=== PATIENT | female | born 1945 | race Caucasian/White ===

== ENCOUNTER 2022-07-03 09:45 | Outpatient (CLI) | payer MEDICARE, SELFPAY ==
--- NOTE | ~2022-07-03 | MM_ITS ---
EXAMINATION: MM screening araceli BI w cammie HISTORY: Screening mammogram, history of right breast cancer TECHNIQUE: Craniocaudal and mediolateral oblique 3-D tomosynthesis images were obtained and synthetic 2-D images were generated. CAD analysis was submitted and interpreted. COMPARISON: No prior mammogram is available for comparison at this institution. BREAST PARENCHYMAL COMPOSITION: There are scattered areas of fibroglandular density. FINDINGS: There is architectural distortion in the right breast at site of prior lumpectomy No suspic ious mass, calcification, or architectural distortion are identified in either breast to suggest kelley gnancy. IMPRESSION: 1. No mammographic evidence of malignancy. 2. Recommend routine screening mammography in one year. BI-RADS Category 2: Benign finding(s). Reviewed, dictated and finalized at location A.
== END 2022-07-03 09:46 | disposition home or self-care (01) ==
LOC: ANHIMG 09:48
PROVIDERS: Visit Provider Internal Medicine Medical Oncology
DX: Z12.31 Encounter for screening mammogram for malignant neoplasm of breast (principal)
CPT/HCPCS: 77063; 77067

== ENCOUNTER 2023-07-06 09:45 | Outpatient (CLI) | payer MEDICARE, SELFPAY ==
--- NOTE | ~2023-07-06 | MM_ITS ---
EXAMINATION: MM screening araceli BI w cammie HISTORY: Screening mammogram TECHNIQUE: Craniocaudal and mediolateral oblique 3-D tomosynthesis images were obtained and synthetic 2-D images were generated. CAD analysis was submitted and interpreted. COMPARISON: 06/29/2022 bilateral screening mammogram BREAST PARENCHYMAL COMPOSITION: There are scattered areas of fibroglandular density. FINDINGS: There is considerable volume loss and chronic stable postsurgical change of the right breas t post partial mastectomy for breast cancer. There is no evidence of suspicious mass, calcification, or new architectural distortion to suggest interval malignancy in either breast. There has been no stanley spicious interval change. IMPRESSION: 1. Status post right partial mastectomy for breast cancer. No mammographic evidence of malignancy. 2. Recommend routine screening mammography in one year. BI-RADS Category 2: Benign finding(s). Reviewed, dictated and finalized at location A. IMPRESSION: 1. Status post right partial mastectomy for breast cancer. No mammographic evid ence of malignancy. 2. Recommend routine screening mammography in one year. BI-RADS Category 2: Benign finding(s).
== END 2023-07-06 09:46 | disposition home or self-care (01) ==
LOC: ANHIMG 09:48
PROVIDERS: PCP Nurse Practitioner Family; Visit Provider Nurse Practitioner Family
DX: Z12.31 Encounter for screening mammogram for malignant neoplasm of breast (principal)
CPT/HCPCS: 77063; 77067

== ENCOUNTER 2024-08-20 13:47 | Outpatient (CLI) | payer MEDICARE, SELFPAY ==
--- NOTE | ~2024-08-20 | MM_ITS ---
EXAMINATION: MM screening araceli BI w cammie HISTORY: Screening TECHNIQUE: Craniocaudal and mediolateral oblique 3-D tomosynthesis images were obtained and synthetic 2-D images were generated. CAD analysis was submitted and interpreted. COMPARISON: Comparison to multiple prior studies sequentially, with oldest reviewed study dated 06/11. BREAST PARENCHYMAL COMPOSITION: Not dense: There are scattered areas of fibroglandular density. FINDINGS: There is no evidence of suspicious mass, calcification, or architectural distortion to sugg est malignancy in either breast. There has been no suspicious interval change. IMPRESSION: 1. No mammographic evidence of malignancy. 2. Recommend routine screening mammography in one year. BI-RADS Category 1: Negative Reviewed, dictated and finalized at location B. OR TALENT MANAGEMENT CONSULTANT
== END 2024-08-20 13:48 | disposition home or self-care (01) ==
LOC: ANHIMG 13:49
PROVIDERS: PCP Internal Medicine Geriatric Medicine; Visit Provider Internal Medicine Medical Oncology
DX: Z12.31 Encounter for screening mammogram for malignant neoplasm of breast (principal); C50.911 Malignant neoplasm of unspecified site of right female breast; Z17.1 Estrogen receptor negative status [ER-]; Z90.11 Acquired absence of right breast and nipple
CPT/HCPCS: 77063; 77067

== ENCOUNTER 2025-02-18 14:09 | Outpatient (CLI) | payer MEDICARE, SELFPAY ==
--- NOTE | ~2025-02-18 | XR_ITS ---
[[id number] ] INDICATION: Third any appeared status post recent fall. TECHNIQUE: Frontal projection of the upper left ribs, frontal projection of the lower left ribs, obli que projection of all the left ribs, frontal inspiratory chest x-ray for interpretation. FINDINGS: There is an acute left 11th rib fracture. No other fracture identified. No pneumothorax. Th ere are no soft tissue abnormality seen. The lungs are clear. There is mild scoliosis. There are stanley rgical clips overlying the right breast and axilla. IMPRESSION: 1: Acute left 11th rib fracture. Reviewed, dictated and finalized at location []
== END 2025-02-18 14:10 | disposition home or self-care (01) ==
LOC: GOSHIMG 14:10
PROVIDERS: PCP Family Medicine; Visit Provider Nurse Practitioner
DX: S22.32XA Fracture of one rib, left side, initial encounter for closed fracture (principal); R07.81 Pleurodynia
CPT/HCPCS: 71101

== ENCOUNTER 2025-07-23 09:45 | Outpatient (CLI) | payer MEDICARE, SELFPAY ==
--- NOTE | ~2025-07-23 | DEXA_ITS ---
Bone Density Report Name: TRACI ZABALA Age: 80 Sex: Female Ethnicity: White Date of : 1945 Indication: postmenopausal; screening for osteoporosis; cancer; Referring Provider: NELLY OAKES Study: Bone densitometry was performed. Exam Date: July 23, 2025 Accession number: [id number] Bone Density: Region BMD T-score Z-score Classification AP Spine(L1-L4) 0.917 -1.2 1.6 Osteopenia Femoral Neck (Left) 0.741 -1.0 1.4 Normal Total Hip (Left) 0.970 0.2 2.4 Normal Femoral Neck (Right) 0.729 -1.1 1.3 Osteopenia Total Hip (Right) 0.947 0.0 2.2 Normal Total Hip Mean 0.959 0.1 2.3 Normal World Health Organization criteria for BMD impression classify patients as: Normal (T-score at or above -1.0), Osteopenia (T-score between -1.0 and -2.5), or Osteoporosis (T-score at or below -2.5). 10-year Fracture Risk(1): Major Osteoporotic Fracture 12% Hip Fracture 2.7% Reported Risk Factors: [place] (), Neck BMD=0.729, BMI=26.4 (1) FRAX(R) Version 3.08. Fracture probability calculated for an untreated patient. Fracture probability may be lower if the patient has received treatment. Clinical Information Provided by Patient: Has used the following medications: Vitamin D, Calcium Has the following medical conditions: Cancer Patient maximum height was 67.5 Menopause Age: 43 Drinks caffeinated beverages Onset of menses at age 10 Number of children 5 Impression: The patient has low bone mass, based on the Total Spine T-score. The patient has an estimated ten-year risk of hip fracture of 2.7% and an estimated ten-year risk of major fracture of 12%, based on the WHO FRAX algorithm. Discussion: BONE DENSITY IS LOW AT ONE OR MORE SKELETAL SITES. This patient's lowest T-score is low at one or more skeletal sites. It meets the World Health Organization's (WHO) criteria for ?low bone mass? (T-score between -1.0 and -2.5). The patient's 10-year risk of fracture as calculated by FRAX is less than the threshold where pharmacological therapy is recommended by the National Osteoporosis Foundation (NOF). However, all treatment decisions require clinical judgment and consideration of individual patient factors, including patient preferences, comorbidities, previous drug use, risk factors not captured in the FRAX model (e.g., frailty, falls, vitamin D deficiency, increased bone turnover, interval significant decline in bone density) and possible under or overestimation of fracture risk by FRAX. The patient should follow a healthful lifestyle (good nutrition with adequate calcium and vitamin D, and appropriate weight-bearing exercise). Follow-Up: Consider repeating this study in 2 to 3 years to reassess this patient's status, or sooner if there is some new clinical indication. Reported by: SARAH on 07/23/2025 10:36:00 AM. Reviewed, dictated and finalized at location A.
--- OUTSIDE RECORDS SUMMARY | 2025-07-23 10:25 | XMS_ITS | Clinical Summary ---
Author Organization [facility] Address [address] [place] [id number] Care Team Providers Care Shearer Screen Measurer And Trimmer Name Role Phone Steffi Srinivasan MD PhD Unavaila ble Mar Wan POWERPLANT OPERATOR Unavailable [phone] Jeannette Woods DO Primary Care Provider [phone]- [phone] Allergies No known active allergies Medications multivitamin capsule take 1 capsule by oral route every day 0 0 Active atenolol (TENORMIN) 25 mg tablet Take 1 tablet (25 mg total) by mouth daily 7 Active vitamin E 400 unit capsule Take 1 capsule (400 Units total) by mouth daily Active alendronate (FOSAMAX) 70 mg tablet Take 1 tablet (70 mg total) by mouth once a week Pt states takes on weekends 9 Active aspirin 81 mg chewable tablet Take 1 tablet (81 mg total) by mouth daily Active ondansetron ODT (ZOFRAN-ODT) 4 mg disintegrating tablet Take 1 tablet (4 mg total) by mouth every 8 (eight) hours as needed for nausea or vomiting 20 tablet 4 Active cholecalciferol (VITAMIN D-3) 5,000 unit tablet Take 1 tablet (5,000 Units total) by mouth daily Active fluticasone propionate (FLONASE) 50 mcg/actuation nasal spray Administer 1 spray into each nostril daily Active metFORMIN XR (GLUCOPHAGE XR) 500 mg 24 hr tablet Take 1 tablet (500 mg total) by mouth 2 (two) times a day Active Active Problems Problem Noted Date Diagnosed Date Acute pulmonary embolism wit hout acute cor pulmonale, unspecified pulmonary embolism type 03/14/2024 Acute pulmonary embolism wit h acute cor pulmonale, unspecified pulmonary embolism type 03/14/2024 Hx of colonic polyps 03/08/2023 Malignant neoplasm of right breast in female, estrogen receptor negative 11/29/2018 Cancer Staging:Pathologic stage from 09/05/2006:Stage IIIA(pT2, pN1a, cM0, G3, ER-, MS-, HER2-) - Signed by Arvin Castaneda MD on 12/04/2018 History of breast cancer in female 07/03/2017 Torn cartilage 12/13/2015 Overview (12/14/2016): Degenerative tear of meniscus of right knee Encounters Date Type Department Care Team Description 06/19/2025 9:15 AM CDT Office Visit [facility] [address] [place] [address] [address] [place] [address] Cresencio Ortega, Malignant neoplasm of right breast in female, estrogen receptor negative, unspecified site of breast (HCC) (Primary Dx); Screening mammogram for breast cancer from Last 3 Months Immunizations Immunization Administration Dates Next Due Influenza, Trivalent, IM (MDV) 06/06/2016 Pneumococcal Polysaccharide PPV23 12/02/2014 Surgical History Surgery Date Site/Laterality Comments COLONOSCOPY 2012 BREAST BIOPSY Right RT 2006 BREAST LUMPECTOMY Medical History Medical History Date Comments Hypertension Hypertension Hx Other Medical vertigo; Commen ts: CAC 12/02/2015 - Sleep apnea Syncope when standing at times has syncope Malignant neoplasm of female breast (HCC) 09/10/2005 Cancer, breast; Comments: CA C 12/02/2015 - History of radiation therapy 200 6 History of chemotherapy 2006 Family History Medical History Relation Name Comments Hypertension Father Hypertension; Cancer Mother Cancer; Colon cancer Mother Ovarian cancer Mother Breast cancer Neg Hx Endometrial cancer Neg Hx Thyroid cancer Neg Hx Relation Name Status Comments Father Mother (Age 69) Social History Tobacco Use Types Packs/Day Years Used Date Smoking Tobacco: Never Smokeless Tobacco: Never Alcohol Use Standard Drinks/Week Comments No 0 (1 standard drink = 0.6 oz pur e alcohol) [facility] Utilities Answer Date Recorded In the past 12 months has th e electric, gas, oil, or water company threatened to shut off services in your home? No 03/17/2024 Social Connection and Isolation Panel Answer Date Recorded In a typical week, how many times do you talk on the phone with family, friends, or neighbors? More than three times a week 03/17/2024 How often do you get togethe r with friends or relatives? More than three times a week 03/17/2024 How often do you attend chur ch or mormon services? Never 03/17/2024 Do you belong to any clubs o r organizations such as uatsdin groups, unions, fraternal or athletic groups, or school groups? No 03/17/2024 How often do you attend meet ings of the clubs or organizations you belong to? Never 03/17/2024 Are you , , di vorced, , never , or living with a partner? Patient declined 03/17/2024 Overall Financial Resource Strain (CARDIA) Answe r Date Recorded How hard is it for you to pa y for the very basics like food, housing, medical care, and heating? Not hard at all 03/17/2024 Hunger Vital Sign Answer Date Recorded Within the past 12 months, y ou worried that your food would run out before you got the money to buy more. Never true 03/17/20 24 Within the past 12 months, t he food you bought just didn't last and you didn't have money to get more. Never true 03/17/2024 PRAPARE - Transportation Answer Date Re corded In the past 12 months, has l ack of transportation kept you from medical appointments or from getting medications? No 04/2024 In the past 12 months, has l ack of transportation kept you from meetings, work, or from getting things needed for daily living? No 03/17/2024 Housing Stability Vital Sign Answer Nitesh e Recorded In the last 12 months, was t here a time when you were not able to pay the mortgage or rent on time? No 03/17/2024 In the past 12 months, how m any times have you moved where you were living? 0 03/17/2024 At any time in the past 12 m [facility], were you homeless or living in a prison (including now)? No 03/17/2024 AUDIT-C Answer Date Recorded Frequency of Alcohol Consumption Not on file 06/19/2025 Q2: How many drinks containi ng alcohol do you have on a typical day when you are drinking? Patient does not drink Frequency of Binge Drinking Not on file 06/10 Personal Safety Answer Date Recorded Have you ever been in or are you currently in a harmful physical or emotional relationship or is someone making you feel afraid or unsafe? Denies 06/15/2024 Comments No Sex and Gender Information Value Date Recorded Sex Assigned at Not on file Legal Sex Female 1:22 AM PILOT SUBMERSIBLE Gender Identity Not on file Sexual Orientation Not on file Obstetrics History Para Term AB IAB SAB Ectopic Multiple Livin g Live Births 5 5 5 Date Outcome GA Total Labor Labor//3rd Weight Sex Type Anes PTL Alana A1 A5 Name Clin Term Term Term Term Term Last Filed Vital Signs Vital Sign Reading Time Taken Comments Blood Pressure 144/83 06/19/2025 9:27 AM CDT Pulse 67 06/19/2025 9:27 AM CDT Temperature 36.7 C (98 F) 06/19/2025 9:27 AM CDT Respiratory Rate 18 06/19/2025 9:27 AM CDT Oxygen Saturation 93% 06/19/2025 9:2 7 AM CDT Inhaled Oxygen Concentration - - Weight 79.7 kg (175 lb 11.3 oz) 025 9:27 AM CDT with shoes Height 170.2 cm (5' 7) 10/07/2024 2:52 PM PILOT SUBMERSIBLE Body Mass Index 27.52 10/07/2024 2:52 PM PILOT SUBMERSIBLE Plan of Treatment Health Maintenance Due Date Last Done Comments Depression Screening 1945 DTaP/Tdap/Td Vaccine (1 - Tdap) 1954 Hepatitis B Screening 1961 Zoster Vaccine (1 of 2) 1993 Well Visit 65+ 01/02/2008 Pneumococcal vaccine 65+ (2 of 2 - PCV) 12/03/2015 0 12/02/2014 Osteoporosis Screening-Bone Density Scan 11/28/2017 11/29/2015 Fall Risk Assessment 03/18/2025 03/18/2024, 10/01/19 18 Covid-19 Vaccine ( season) 2025, 10/14/2020 Influenza Vaccine (#1) 2025 06/06/2016 Procedures Procedure Name Priority Date/Time Associated Diagnosis Comments DEXA AXIAL SKELETON BONE DENSITY 1 OR MORE SITES Routine 11/29/2015 8:28 AM CDT from Last 3 Months or Most Recently Relevant to Health Maintenance Results * Dexa Axial Skeleton Bone Density 1 or 2 Site (11/29/2015 8:28 AM CDT) Anatomical Region Laterality Modality N/A Nuclear Medicine 11/29/2015 8:28 AM CDT Narrative 11/30/2015 7:44 AM CDT DATE OF EXAM: Nov 29 2015 8:28AM Acc#: [id number] [facility] 0001 - DEXA Bone Density Axial DIAGNOSIS: MALIG NEOPLM OF LOWER-OUTER QUADRANT OF CLINICAL HISTORY: BREAST CANCER RESULT: EXAM: DEXA BONE DENSITOMETRY DATE: 11/29/2015 CLINICAL HISTORY: Osteopenia COMPARISON: 03/23/2003 T-SCORE: Bone mineral densitometry studies were performed utilizing images obtained of the lumbar spine in the anterior projection, and an anterior image of the left hip. Important findings include the following T-score results and the patient's percentages of normal compared to young adults. T-score % of Normal AP lumbar spine = -1.5 84% Total hip = -0.5 94% Femoral neck = -1.5 81% The T-score compares to the patient's bone mineral density to peak bone mass of young normal adults - the more negative the number, the greater the loss of bone. IMPRESSION: This patient's bone mineral density was found to be below normal. In one or more areas tested, the bone density was found to be between 10% and 25% below the value found in healthy young adults. The T-scores of the AP lumbar spine and femoral neck are consistent with osteopenia. Bone mineral density of the AP lumbar spine has decreased 2.6% compared to the prior exam but increased 2.9% compared to baseline. Bone mineral density of the total hip has decreased 5.8% compared to the prior exam and decreased 1.3% compared to baseline. CURRENT TREATMENT: The patient is on a daily calcium supplement (1200 mg a day), which should be continued. The patient previously took Fosamax for 3 years, but stopped over 20 years ago. The patient previously took Premarin for hormone replacement therapy for 1-2 years, but stopped over 20 years ago. FOLLOW-UP RECOMMENDATIONS: Followup exam in 2 years is recommended. CAMERA REPAIRMAN: [id number] TRANSCRIBE DATE/TIME: Nov 29 2015 7:21P RADIOLOGIST: ASHLI HATCH M.D. READ ON: Nov 29 2015 4:09P ORDERING DR: ARVIN CASTANEDA M.D. THIS DOCUMENT HAS BEEN ELECTRONICALLY SIGNED BY: ASHLI HATCH M.D. ON: Nov 30 2015 7:44A Attending: ARVIN CASTANEDA Requesting: ARVIN CASTANEDA Requesting Attending Attending ID: [id number] Requesting ID: [id number] Report To 1 ID: Report To 1 Name: , Report To 1 FAX: -- Report To 2 ID: Report To 2 Name: , Report To 2 FAX: -- NextGen Order #: Procedure Note Provider, MD Harley - 12/30/2016 DATE OF EXAM: Nov 29 2015 8:28AM Acc#: [id number] [facility] 0001 - DEXA Bone Density Axial DIAGNOSIS: MALIG NEOPLM OF LOWER-OUTER QUADRANT OF CLINICAL HISTORY: BREAST CANCER RESULT: EXAM: DEXA BONE DENSITOMETRY DATE: 11/29/2015 CLINICAL HISTORY: Osteopenia COMPARISON: 03/23/2003 T-SCORE: Bone mineral densitometry studies were performed utilizing images obtained of the lumbar spine in the anterior projection, and an anterior image of the left hip. Important findings include the following T-score results and the patient's percentages of normal compared to young adults. T-score % of Normal AP lumbar spine = -1.5 84% Total hip = -0.5 94% Femoral neck = -1.5 81% The T-score compares to the patient's bone mineral density to peak bone mass of young normal adults - the more negative the number, the greater the loss of bone. IMPRESSION: This patient's bone mineral density was found to be below normal. In one or more areas tested, the bone density was found to be between 10% and 25% below the value found in healthy young adults. The T-scores of the AP lumbar spine and femoral neck are consistent with osteopenia. Bone mineral density of the AP lumbar spine has decreased 2.6% compared to the prior exam but increased 2.9% compared to baseline. Bone mineral density of the total hip has decreased 5.8% compared to the prior exam and decreased 1.3% compared to baseline. CURRENT TREATMENT: The patient is on a daily calcium supplement (1200 mg a day), which should be continued. The patient previously took Fosamax for 3 years, but stopped over 20 years ago. The patient previously took Premarin for hormone replacement therapy for 1-2 years, but stopped over 20 years ago. FOLLOW-UP RECOMMENDATIONS: Followup exam in 2 years is recommended. CAMERA REPAIRMAN: HIRO TRANSCRIBE DATE/TIME: Nov 29 2015 7:21P RADIOLOGIST: ASHLI HATCH M.D. READ ON: Nov 29 2015 4:09P ORDERING DR: ARVIN CASTANEDA M.D. THIS DOCUMENT HAS BEEN ELECTRONICALLY SIGNED BY: ASHLI HATCH M.D. ON: Nov 30 2015 7:44A Attending: ARVIN CASTANEDA Requesting: ARVIN CASTANEDA Requesting Attending Attending ID: [id number] Requesting ID: [id number] Report To 1 ID: Report To 1 Name: , Report To 1 FAX: -- Report To 2 ID: Report To 2 Name: , Report To 2 FAX: -- NextGen Order #: Historical Provider MD CASPER DXA PROCEDURES Final Result from Last 3 Months or Most Recently Relevant to Health Maintenance Insurance [facility] AETNA MEDICARE GOLD AETNA MEDICARE GOLD Advance Directives For more information, please contact: [phone] Documents on File Type Date Recorded Patient Temp Recruiter Expl anation ADVANCE DIRECTIVE 03/19/2024 5:01 PM POWER OF SHUTTLE PREPARATION SUPERVISOR-MEDICAL ADVANCE DIRECTIVE 06/14/2017 Advance Di rective Checklist * Full Code (Latest Code Status on File) Date Activated Date Inactivated Comments 03/14/2024 10:53 AM 03/18/2024 6:07 PM * Full Code Date Activated Date Inactivated Comments 03/14/2024 10:49 AM 03/14/2024 10:53 AM Care Teams Shearer Screen Measurer And Trimmer Relationship Specialty Start Date End Date Jeannette Woods DO [address] [place] [address] [address] [place] [address] PCP - General Family Medicine 06/19/25 Steffi Srinivasan MD PhD Surgeon Surgical Oncology 12/06/18 Mar Wan, MILAGROS [address] [facility] [address] [address] Nurse Practitioner Medical Oncology 03/06/23
--- OUTSIDE RECORDS SUMMARY | 2025-07-23 10:25 | XMS_ITS | Encounter Summary ---
Author Organization [facility] Address [address] [place] [address] Phone Care Team Providers Care Sewer Line Repairer Name Role Phone Kip Graff MD Primary Care Provider Arvin Sanchez MD Unavailable [phone] Sandro Ross MD Unavailable [phone] Ron Beebe MD Unavailable Steffi Srinivasan MD PhD Unavaila ble Mar Wan ONLINE FACILITATOR Unavailable +- [phone] Mike Cummins MD Primary Care Provider + Jeannette Woods DO Primary Care Provider [phone]- [phone] Encounter Details Date Type Department Care Team (Latest Contact Info) Description 02/23/2021 Orders Only [facility] Scanning, Provider Social History Tobacco Use Types Packs/Day Years Used Date Smoking Tobacco: Never Smokeless Tobacco: Never Alcohol Use Standard Drinks/Week Comments No 0 (1 standard drink = 0.6 oz pur e alcohol) Comments Unknown Sex and Gender Information Value Date Recorded Sex Assigned at Not on file Legal Sex Female 1:22 AM GENERAL ADJUSTER Gender Identity Not on file Sexual Orientation Not on file documented as of this encounter Plan of Treatment Not on file documented as of this encounter Procedures Procedure Name Priority Date/Time Associated Diagnosis Comments SCAN - RADIOLOGY/IMAGING 02/23/2021 documented in this encounter Results * SCAN - RADIOLOGY/IMAGING (02/23/2021) Anatomical Region Laterality Modality Other Provider Scanning Final Result documented in this encounter Visit Diagnoses Not on filedocumented in this encounter Care Teams Sewer Line Repairer Relationship Specialty Start Date End Date Kip Graff MD PCP - General 11/22/16 04/17/24 [place] [id number] [address] [facility] [address] [place] [address] PCP - General Internal Medicine 04/18/24 06/18/25 Jeannette Woods DO [address] [place] [address] [address] [place] [address] PCP - General Family Medicine 06/19/25 Arvin Sanchez MD Medical Oncologist/Kiln Repairer Medical Oncology 10/21/18 01/15/22 Sandro Ross MD Consulting Physician Gastroenterology 10/21/18 01/15/22 [place] [id number] [address] [facility] [address] [place] [address] Surgeon Orthopedic Surgery 10/21/18 01/15/22 [place] [id number] [address] [facility] [address] [place] [address] Surgeon Surgical Oncology 12/06/18 Mar Wan NP [address] [place] [address] Nurse Practitioner Medical Oncology 03/06/23 documented as of this encounter
== END 2025-07-23 09:46 | disposition home or self-care (01) ==
LOC: ANHFOHIMG 09:46
PROVIDERS: PCP Family Medicine; Visit Provider Family Medicine
DX: M85.89 Other specified disorders of bone density and structure, multiple sites (principal)
CPT/HCPCS: 77080